=== PATIENT | female | born 1985 | race Hispanic/Latino ===

== ENCOUNTER 2016-10-10 10:06 | Emergency (ER) | payer SELFPAY ==
--- NOTE | 2016-10-10 12:11 | Emergency Department Report ---
Abscess Boil HPI - HPI Chief Complaint: Skin/Abscess/Foreign Body Stated Complaint: INGROWN HAIR/BOIL Time Seen by Provider: 10/10/16 11:31 Duration: 3 Days Location: Upper Extremity Severity: Mild History: Yes Pain, No Fever, No Purulent Drainage, No Numbness, No Foreign Body , No Previous History, No Insect Bite HPI: Patient is a 31-year-old female with no prior medical history who presents to ED complaining right axillary boil that has gotten bigger and worsening pain today days. Patient states her fever and denies any vomiting. Patient states that she is currently on her cycle and is not Home Medications: Previous Rx's Medication Instructions Recorded Last Taken Type Hydrocortisone 1% [Hydrocortisone 1 applicatio TP TID PRN #30 gm 10/14/13 Unknown Rx 1% CREAM] Sulfamethoxazole/Trimethoprim 1 each PO Q12H #30 tablet 10/14/13 Unknown Rx [Bactrim Ds] Cephalexin [Keflex] 500 mg PO BID #14 capsule 10/10/16 Unknown Rx HYDROcodone/APAP 5-325 [[place] 1 each PO Q6HR PRN #8 tablet 10/10/16 Unknown Rx 5-325 mg TAB] Ibuprofen [Motrin] 800 mg PO Q8HR PRN #30 tablet 10/10/16 Unknown Rx Allergies/Adverse Reactions: Allergies Allergy/AdvReac Type Severity Reaction Status Date / Time No Known Allergies Allergy Verified 08/17/13 05:15 ED Review of Systems ROS: Stated complaint: INGROWN HAIR/BOIL Other details as noted in HPI Constitutional: denies: chills, fever Eyes: denies: eye pain, eye discharge, vision change ENT: denies: ear pain, throat pain Respiratory: denies: cough, shortness of breath, wheezing Cardiovascular: denies: chest pain, palpitations Endocrine: no symptoms reported Gastrointestinal: denies: abdominal pain, nausea, diarrhea Genitourinary: denies: urgency, dysuria, discharge Musculoskeletal: denies: back pain, joint swelling, arthralgia Skin: denies: rash, lesions Neurological: denies: headache, weakness, paresthesias Psychiatric: denies: anxiety, depression Hematological/Lymphatic: denies: easy bleeding, easy bruising ED Past Medical Hx - Past Medical History Previous Medical History?: Yes Hx Congestive Heart Failure: No Hx Diabetes: No Hx Psychiatric Treatment: Yes (anxiety) Hx Asthma: No Hx COPD: No Additional medical history: FELIX - Surgical History Past Surgical History?: Yes Additional Surgical History: metal hannah l) leg - Social History Smoking Status: Current Every Day Smoker Substance Use Type: None - Medications Home Medications: Home Medications Medication Instructions Recorded Confirmed Last Taken Type Hydrocortisone 1% [Hydrocortisone 1 applicatio TP TID PRN #30 gm 10/14/13 Unknown Rx 1% CREAM] Sulfamethoxazole/Trimethoprim 1 each PO Q12H #30 tablet 10/14/13 Unknown Rx [Bactrim Ds] Cephalexin [Keflex] 500 mg PO BID #14 capsule 10/10/16 Unknown Rx HYDROcodone/APAP 5-325 [[place] 1 each PO Q6HR PRN #8 tablet 10/10/16 Unknown Rx 5-325 mg TAB] Ibuprofen [Motrin] 800 mg PO Q8HR PRN #30 tablet 10/10/16 Unknown Rx ED Abscess Boil Physical Exam - Exam General: Vital signs noted. No distress. Alert and acting appropriately. Size: 4 cm Exam: Yes Tenderness, Yes Fluctuance, Yes Surrounding Cellulites/Erythema, Yes Normal Neurologic Exam, Yes Normal Circulation, No Lymphangitis, No Crepitation , No Heart Murmur I & D Note - I & D Note I & D Note: Patient positioned appropriately, 5cc lidocaine without epinephrine was used as a local anesthetic. #11 blade scalpal used for single incision. Additional local anesthetic injected into surrounding viable tissue prior to blunt dissection of loculated adhesions. Copius drainage of pus. Wound packed with iodoform gauze. Procedure tolerated without complications. Wound dressed with sterile 4x4 guaze and paper tape. Pt tolerated procedure well. ED Course Vital Signs 10/10/16 10:35 Temperature 98.7 F Pulse Rate 132 H Respiratory 16 Rate Blood Pressure 140/95 O2 Sat by Pulse 98 Oximetry Critical care attestation.: If time is entered above; I have spent that time in minutes in the direct care of this critically ill patient, excluding procedure time. ED Medical Decision Making - Medical Decision Making 31-year-old female presents with right axillary abscess ED course: Patient received Toradol in the ED. Discussed the patient to return to ED in 3 days for packing removal and wound check. Discussed with patient to change dressing daily. Vital signs are normal patient is in no acute distress. The I&D nowsee ID note ED Disposition Clinical Impression: Axillary abscess Disposition: [id number] TO HOME OR SELFCARE Is pt being admited?: No Does the pt Need Aspirin: No Condition: Stable Instructions: Abscess (ED), Abscess Incision and Drainage (ED) Prescriptions: Cephalexin [Keflex] 500 mg PO BID #14 capsule HYDROcodone/APAP 5-325 [[place] 5-325 mg TAB] 1 each PO Q6HR PRN #8 tablet PRN Reason: Pain Ibuprofen [Motrin] 800 mg PO Q8HR PRN #30 tablet PRN Reason: Pain Referrals: PRIMARY CARE,MD [Primary Care Provider] - 3-5 Days [facility] [Outside] - 3-5 Days [facility] [Outside] - 3-5 Days [facility] [Outside] - 3-5 Days Forms: Work/School Release Form(ED) Time of Disposition: 12:45
[2016-10-10] MEDS ORDERED: TORADOL IM ONE (12:17)
[2016-10-10] MEDS ORDERED: XYLOCAINE 1% 20 mL INFILTRATI NR (12:30)
[2016-10-10 13:27] VITALS: BP 133/92
== END 2016-10-10 13:35 | disposition home or self-care (01) ==
LOC: ED 10:06
DX: L02.411 Cutaneous abscess of right axilla (principal); F17.200 Nicotine dependence, unspecified, uncomplicated
CPT/HCPCS: 10060; 96372; 99281; J1885

== ENCOUNTER 2016-10-12 16:33 | Emergency (ER) | payer SELFPAY ==
[2016-10-12 17:35] VITALS: BP 132/97
--- NOTE | 2016-10-12 20:45 | Emergency Department Report ---
- General Chief Complaint: Skin/Abscess/Foreign Body Stated Complaint: PACKAGE REMOVED Time Seen by Provider: 10/12/16 20:36 Source: patient Mode of arrival: Ambulatory Limitations: No Limitations - History of Present Illness Initial Comments: 31-year-old female past medical history none presents with complaint of request for packing removal right axilla. Patient states that she had an abscess incised on 10/10 and is here for packing removal. Denies fevers or chills denies increased purulent drainage or reaccumulation of abscess. States it has improved significantly and is currently taking keflex. Onset/Timin -: days(s) - Related Data Previous Rx's Medication Instructions Recorded Last Taken Type Hydrocortisone 1% [Hydrocortisone 1 applicatio TP TID PRN #30 gm 10/14/13 Unknown Rx 1% CREAM] Sulfamethoxazole/Trimethoprim 1 each PO Q12H #30 tablet 10/14/13 Unknown Rx [Bactrim Ds] Cephalexin [Keflex] 500 mg PO BID #14 capsule 10/10/16 Unknown Rx HYDROcodone/APAP 5-325 [[place] 1 each PO Q6HR PRN #8 tablet 10/10/16 Unknown Rx 5-325 mg TAB] Ibuprofen [Motrin] 800 mg PO Q8HR PRN #30 tablet 10/10/16 Unknown Rx Sulfamethoxazole/Trimethoprim 1 each PO BID #14 tablet 10/12/16 Unknown Rx [Bactrim DS TAB] Allergies Allergy/AdvReac Type Severity Reaction Status Date / Time No Known Allergies Allergy Verified 08/17/13 05:15 ED Review of Systems ROS: Stated complaint: PACKAGE REMOVED Other details as noted in HPI ED Past Medical Hx - Past Medical History Previous Medical History?: Yes Hx Congestive Heart Failure: No Hx Diabetes: No Hx Psychiatric Treatment: Yes (anxiety) Hx Asthma: No Hx COPD: No Additional medical history: FELIX - Surgical History Additional Surgical History: metal hannah l) leg - Social History Smoking Status: Current Every Day Smoker Substance Use Type: None - Medications Home Medications: Home Medications Medication Instructions Recorded Confirmed Last Taken Type Hydrocortisone 1% [Hydrocortisone 1 applicatio TP TID PRN #30 gm 10/14/13 Unknown Rx 1% CREAM] Sulfamethoxazole/Trimethoprim 1 each PO Q12H #30 tablet 10/14/13 Unknown Rx [Bactrim Ds] Cephalexin [Keflex] 500 mg PO BID #14 capsule 10/10/16 Unknown Rx HYDROcodone/APAP 5-325 [[place] 1 each PO Q6HR PRN #8 tablet 10/10/16 Unknown Rx 5-325 mg TAB] Ibuprofen [Motrin] 800 mg PO Q8HR PRN #30 tablet 10/10/16 Unknown Rx Sulfamethoxazole/Trimethoprim 1 each PO BID #14 tablet 10/12/16 Unknown Rx [Bactrim DS TAB] ED Physical Exam - General Limitations: No Limitations ED Course Vital Signs 10/12/16 17:30 Temperature 97.8 F Pulse Rate 98 H Respiratory 16 Rate Blood Pressure 132/97 O2 Sat by Pulse 100 Oximetry ED Medical Decision Making - Medical Decision Making A/P: Axillary abscess packing removal right axilla 1-patient states that she has experienced moderate relief and improvement. Approximately 9 inches of quarter-inch iodoform packing removed from wound. Abscess site soft, incision site open and patent still draining tiny amount of serous and bloody fluid 2-as patient states she was recently released from [facility] I will add on Bactrim for MRSA coverage as patient is only on Keflex at this time 3-I advised patient to return to the ED for any fevers chills worsened pus drainage and reaccumulation. Patient stated she understood my instructions 4- Critical care attestation.: If time is entered above; I have spent that time in minutes in the direct care of this critically ill patient, excluding procedure time. ED Disposition Clinical Impression: Axillary abscess, Abscess packing removal Disposition: TO HOME OR SELFCARE Is pt being admited?: No Does the pt Need Aspirin: No Condition: Stable Instructions: Acute Wound Care (ED), Abscess Incision and Drainage (ED) Additional Instructions: Patient advised to return to the ED for any reaccumulation of abscess or significant bleeding from site or fevers and chills Prescriptions: Sulfamethoxazole/Trimethoprim [Bactrim DS TAB] 1 each PO BID #14 tablet Referrals: [facility] [Provider Group] - 3-5 Days [facility] [Outside] - 3-5 Days Forms: Work/School Release Form(ED) Time of Disposition: 21:01
== END 2016-10-12 21:14 | disposition home or self-care (01) ==
LOC: ED 16:33
DX: Z48.01 Encounter for change or removal of surgical wound dressing (principal); L02.411 Cutaneous abscess of right axilla; F41.9 Anxiety disorder, unspecified; F17.200 Nicotine dependence, unspecified, uncomplicated

== ENCOUNTER 2018-03-21 14:08 | Emergency (ER) | payer MEDICAID ==
[2018-03-21 14:27] VITALS: BP 125/79
--- NOTE | 2018-03-21 15:08 | Emergency Department Report ---
ED Dysuria HPI - HPI Chief Complaint: Urogenital-Female Stated Complaint: /KIDNEY INFECTION Time Seen by Provider: 03/21/18 14:37 Duration: 3 Days Location of Discomfort: Suprapubic Symptoms: Dysuria: Yes, Frequency: No, Suprapubic Pain: No, Flank Pain: No, Fever: No, Hematuria: No, Abdominal Pain: No, Previous UTI's: Yes Other History: Patient is a 32-year-old female who comes to the ER today complaining that her urine has a strong smell. She has no fever. She is ambulatory. She states she is 3 months and last menstrual cycle November.Her is in the ER status post meth overdose. The patient is hyperverbal and hyperkinetic in fast track ED Review of Systems ROS: Stated complaint: /KIDNEY INFECTION Other details as noted in HPI Comment: All other systems reviewed and negative Constitutional: denies: chills, fever Eyes: denies: eye pain ENT: denies: throat pain Respiratory: denies: cough Cardiovascular: denies: palpitations Endocrine: denies: intolerance to cold Gastrointestinal: denies: abdominal pain, nausea, vomiting Genitourinary: as per HPI, dysuria, abnormal menses, other (LMP 9-18). denies: frequency, hematuria, discharge Musculoskeletal: denies: back pain Skin: denies: lesions Neurological: denies: headache Psychiatric: anxiety, other (HYPERKINETIC AND HYPERVERBAL; STATES SHE BEEN IN ER 3 DAYS WITH HER ). denies: depression Hematological/Lymphatic: denies: easy bleeding ED Past Medical Hx - Past Medical History Previous Medical History?: No Hx Congestive Heart Failure: No Hx Diabetes: No Hx Psychiatric Treatment: Yes (anxiety) Hx Asthma: No Hx COPD: No Additional medical history: FELIX - Surgical History Past Surgical History?: Yes Additional Surgical History: metal hannah l) leg - Social History Smoking Status: Current Every Day Smoker Substance Use Type: None - Medications Home Medications: Home Medications Medication Instructions Recorded Confirmed Last Taken Type RX: Hydrocortisone 1% 1 applicatio TP TID PRN #30 gm 10/14/13 Unknown Rx [Hydrocortisone 1% CREAM] Sulfamethoxazole/Trimethoprim 1 each PO Q12H #30 tablet 10/14/13 Unknown Rx [Bactrim Ds] Cephalexin [Keflex] 500 mg PO BID #14 capsule 10/10/16 Unknown Rx Ibuprofen [Motrin] 800 mg PO Q8HR PRN #30 tablet 10/10/16 Unknown Rx RX: HYDROcodone/APAP 5-325 [[place] 1 each PO Q6HR PRN #8 tablet 10/10/16 Unknown Rx 5-325 mg TAB] Sulfamethoxazole/Trimethoprim 1 each PO BID #14 tablet 10/12/16 Unknown Rx [Bactrim DS TAB] Dysuria Exam - Exam General: Vital signs noted. No distress. Alert and acting appropriately. Exam: Yes Moist Mucous Membranes, No CVA Tenderness, No Abdominal Tenderness, No Rigidity or Guarding ED Course Vital Signs 03/21/18 14:22 Temperature 98.8 F Pulse Rate 89 Respiratory 16 Rate Blood Pressure 125/79 O2 Sat by Pulse 98 Oximetry ED Medical Decision Making - Medical Decision Making LABS PENDING AT TIME OF ELOPEMENT UA UPREG UDS GIVEN HER BEHAVIOR NUMBERS TO REACH HER [id number] Lab Results 03/21/18 03/21/18 Range/Units 14:48 15:00 Urine Color Yellow (Yellow) Urine Turbidity Clear (Clear) Urine pH 7.0 (5.0-7.0) Ur Specific [place] 1.015 (1.003-1.030) Urine Protein <15 mg/dl (Negative) mg/dL Urine Glucose (UA) Neg (Negative) mg/dL Urine Ketones Neg (Negative) mg/dL Urine Blood Neg (Negative) Urine Nitrite Neg (Negative) Urine Bilirubin Neg (Negative) Urine Urobilinogen < 2.0 (<2.0) mg/dL Ur Leukocyte Esterase Sm (Negative) Urine WBC (Auto) 6.0 (0.0-6.0) /HPF Urine RBC (Auto) 2.0 (0.0-6.0) /HPF U Epithel Cells (Auto) 3.0 (0-13.0) /HPF Urine Mucus Few /HPF Urine HCG, Qual Positive A (Negative) Labs 03/21/18 03/21/18 14:48 15:00 Urine Color Yellow Urine Turbidity Clear Urine pH 7.0 Ur Specific [place] 1.015 Urine Protein <15 mg/dl Urine Glucose (UA) Neg Urine Ketones Neg Urine Blood Neg Urine Nitrite Neg Urine Bilirubin Neg Urine Urobilinogen < 2.0 Ur Leukocyte Esterase Sm Urine WBC (Auto) 6.0 Urine RBC (Auto) 2.0 U Epithel Cells (Auto) 3.0 Urine Mucus Few Urine HCG, Qual Positive A - Differential Diagnosis RO UTI Critical care attestation.: If time is entered above; I have spent that time in minutes in the direct care of this critically ill patient, excluding procedure time. ED Disposition Clinical Impression: Dysuria Disposition: ELOPED Is pt being admited?: No Does the pt Need Aspirin: No Condition: Stable Referrals: ALFREDA OHARA MD [Primary Care Provider] - 3-5 Days Time of Disposition: 14:00
[2018-03-21 15:27] LABS: HCG Qualitative,Urine Positive (Negative)
[2018-03-21 15:31] LABS: Bilirubin,Urine NEG (Negative); Blood,Urine NEG (Negative); Color,Urine Yellow (Yellow); Mucus,Urine FEW /HPF; Protein,Urine <15 mg/dL mg/dL (Negative); Urobilinogen,Urine < 2.0 mg/dL (<2.0)
[2018-03-21 15:49] LABS: Amphetamine Screen,Urine PRESUMPTIVE NEGATIVE; Benzodiazepines Screen,Urine PRESUMPTIVE NEGATIVE; Cannabinoid Screen,Urine PRESUMPTIVE NEGATIVE; Cocaine Screen,Urine PRESUMPTIVE NEGATIVE; Methadone Screen,Urine PRESUMPTIVE NEGATIVE; Opiate Screen,Urine PRESUMPTIVE NEGATIVE
== END 2018-03-21 15:54 | disposition left against medical advice (07) ==
LOC: ED 14:08
DX: O26.891 Other specified pregnancy related conditions, first trimester (principal); O99.331 Smoking (tobacco) complicating pregnancy, first trimester; O99.341 Other mental disorders complicating pregnancy, first trimester; R30.0 Dysuria; F41.9 Anxiety disorder, unspecified; R35.0 Frequency of micturition; Z3A.10 10 weeks gestation of pregnancy; Z79.899 Other long term (current) drug therapy
CPT/HCPCS: 80307; 81001; 81025; 99282

== ENCOUNTER 2018-04-07 15:31 | Emergency (ER) | payer MEDICAID ==
--- NOTE | 2018-04-07 16:31 | Emergency Department Report ---
ED Anxiety HPI - General Chief Complaint: Anxiety Stated Complaint: PREG/STRESSED Time Seen by Provider: 04/07/18 16:06 Source: patient Mode of arrival: Ambulatory - History of Present Illness Initial Comments: Patient is a 32-year-old female that presents emergency room for ultrasound. Patient states she is about 4-5 months and has not had any care and would like a ultrasound. Patient denies chest pain. Patient denies shortness of breath. Patient states she is under a lot of stress due to her being in the hospital. Patient was found to be tachycardic in triage and an EKG was done. Patient denies palpitations. Patient denies shortness of breath. Patient denies chest pain. Patient denies all pain patient denies physical symptoms. Patient states she has not been drinking water eating regularly due to the fact that her being in the hospital. She's only complaint is anxiety and stress reaction from being under a lot of stress. Complaint: anxiety -: Sudden - Related Data Home Medications: Previous Rx's Medication Instructions Recorded Last Taken Type Hydrocortisone 1% [Hydrocortisone 1 applicatio TP TID PRN #30 gm 10/14/13 Unknown Rx 1% CREAM] Sulfamethoxazole/Trimethoprim 1 each PO Q12H #30 tablet 10/14/13 Unknown Rx [Bactrim Ds] Cephalexin [Keflex] 500 mg PO BID #14 capsule 10/10/16 Unknown Rx HYDROcodone/APAP 5-325 [[place] 1 each PO Q6HR PRN #8 tablet 10/10/16 Unknown Rx 5-325 mg TAB] Ibuprofen [Motrin] 800 mg PO Q8HR PRN #30 tablet 10/10/16 Unknown Rx Sulfamethoxazole/Trimethoprim 1 each PO BID #14 tablet 10/12/16 Unknown Rx [Bactrim DS TAB] Allergies/Adverse Reactions: Allergies Allergy/AdvReac Type Severity Reaction Status Date / Time No Known Allergies Allergy Verified 04/07/18 15:37 ED Review of Systems ROS: Stated complaint: PREG/STRESSED Other details as noted in HPI Constitutional: denies: chills, fever Eyes: denies: eye pain, eye discharge, vision change ENT: denies: ear pain, throat pain Respiratory: denies: cough, shortness of breath, wheezing Cardiovascular: denies: chest pain, palpitations Endocrine: no symptoms reported Gastrointestinal: denies: abdominal pain, nausea, diarrhea Genitourinary: denies: urgency, dysuria, discharge Musculoskeletal: denies: back pain, joint swelling, arthralgia Skin: denies: rash, lesions Neurological: denies: headache, weakness, paresthesias Psychiatric: denies: anxiety, depression Hematological/Lymphatic: denies: easy bleeding, easy bruising ED Past Medical Hx - Past Medical History Previous Medical History?: Yes Hx Congestive Heart Failure: No Hx Diabetes: No Hx Psychiatric Treatment: Yes (anxiety) Hx Asthma: No Hx COPD: No Additional medical history: FELIX - Surgical History Past Surgical History?: Yes Additional Surgical History: metal hannah l) leg - Family History Family history: no significant - Social History Smoking Status: Current Every Day Smoker Substance Use Type: None - Medications Home Medications: Home Medications Medication Instructions Recorded Confirmed Last Taken Type Hydrocortisone 1% [Hydrocortisone 1 applicatio TP TID PRN #30 gm 10/14/13 Unknown Rx 1% CREAM] Sulfamethoxazole/Trimethoprim 1 each PO Q12H #30 tablet 10/14/13 Unknown Rx [Bactrim Ds] Cephalexin [Keflex] 500 mg PO BID #14 capsule 10/10/16 Unknown Rx HYDROcodone/APAP 5-325 [[place] 1 each PO Q6HR PRN #8 tablet 10/10/16 Unknown Rx 5-325 mg TAB] Ibuprofen [Motrin] 800 mg PO Q8HR PRN #30 tablet 10/10/16 Unknown Rx Sulfamethoxazole/Trimethoprim 1 each PO BID #14 tablet 10/12/16 Unknown Rx [Bactrim DS TAB] ED Physical Exam - General Limitations: No Limitations General appearance: alert, in no apparent distress - Head Head exam: Present: atraumatic, normocephalic - Eye Eye exam: Present: normal appearance - ENT ENT exam: Present: mucous membranes moist - Neck Neck exam: Present: normal inspection - Respiratory Respiratory exam: Present: normal lung sounds bilaterally. Absent: respiratory distress - Cardiovascular Cardiovascular Exam: Present: regular rate, normal rhythm. Absent: systolic murmur, diastolic murmur, rubs, gallop - GI/Abdominal GI/Abdominal exam: Present: soft, normal bowel sounds - Extremities Exam Extremities exam: Present: normal inspection - Back Exam Back exam: Present: normal inspection - Neurological Exam Neurological exam: Present: alert, oriented X3 - Psychiatric Psychiatric exam: Present: normal affect, normal mood - Skin Skin exam: Present: warm, dry, intact, normal color. Absent: rash ED Course Vital Signs 04/07/18 15:37 Temperature 97.4 F L Pulse Rate 140 H Respiratory 20 Rate Blood Pressure 137/84 O2 Sat by Pulse 100 Oximetry - Reevaluation(s) Reevaluation #1: Initial evaluation done. Discussed plan of care and investigation with patient. Patient will have labs and beta-hCG done. Patient agrees with plan of care. 04/07/18 16:06 Patient states she does not want to have workup done. Patient is a note 4. Patient states that she is ready to leave. Patient states she is going to leave. Risks explained to patient. Patient signed AMA. Patient voiced understanding of risks. Instructed to take vitamin. Patient instructed to follow up with [employer]. Patient instructed to return to ER if condition worsens. 04/07/18 17:00 ED Medical Decision Making - EKG Data -: EKG Interpreted by Me EKG shows normal: sinus rhythm, axis, intervals, QRS complexes, ST-T waves Rate: tachycardia - Medical Decision Making Patient is a 32-year-old female that presents emergency room for a ultrasound and stress. Patient signed out AMA. Risk discussed with patient. Patient voiced understanding of risks. Patient signed AMA form. Patient left AGAINST MEDICAL ADVICE. - Differential Diagnosis anx. stress. tachy Critical care attestation.: If time is entered above; I have spent that time in minutes in the direct care of this critically ill patient, excluding procedure time. ED Disposition Clinical Impression: Anxiety, Stress reaction, Tachycardia Qualifiers: Weeks of gestation: unspecified Qualified Code(s): Z34.90 - Encounter for supervision of normal , unspecified, unspecified trimester Disposition: LEFT AGAINST MED ADVICE Is pt being admited?: No Does the pt Need Aspirin: No Condition: Undetermined Time of Disposition: 17:07
[2018-04-08 14:18] VITALS: BP 137/84
== END 2018-04-07 16:30 | disposition left against medical advice (07) ==
LOC: ED 15:31
DX: O99.342 Other mental disorders complicating pregnancy, second trimester (principal); F41.9 Anxiety disorder, unspecified; F43.9 Reaction to severe stress, unspecified; O99.412 Diseases of the circulatory system complicating pregnancy, second trimester; R00.0 Tachycardia, unspecified; O99.332 Smoking (tobacco) complicating pregnancy, second trimester; F17.200 Nicotine dependence, unspecified, uncomplicated; Z3A.16 16 weeks gestation of pregnancy
CPT/HCPCS: 93005; 93010; 99282

== ENCOUNTER 2019-01-05 22:50 | Emergency (ER) | payer MEDICAID ==
--- NOTE | 2019-01-05 23:36 | XRay Report ---
RIGHT WRIST 4 VIEW(S) INDICATION / CLINICAL INFORMATION: right wrist swelling. COMPARISON: None available. FINDINGS: BONES / JOINT(S): Mildly comminuted, transverse fracture of the distal right radius with mild dorsal angulation and displacement. Fracture line does extend to the distal radial articular surface. Minima lly displaced fracture of the ulnar styloid process. No carpal bone fracture. No significant arthriti s. SOFT TISSUES: Moderate soft tissue swelling on the dorsum of the wrist. ADDITIONAL FINDINGS: None. IMPRESSION: 1. Right distal radius fracture. Signer Name: Modesto Garber MD Signed: 01/05/2019 11:32 PM Workstation Name: [id number]
[2019-01-05] MEDS ORDERED: IBUPROFEN 600 MG TAB PO ONE (23:51)
[2019-01-05] MEDS ORDERED: HYDROmorphone 1 MG/1 ML INJ IM ONE (23:51)
[2019-01-05] MEDS ORDERED: ONDANSETRON 4 MG ODT TAB PO ONE (23:51)
[2019-01-05] MEDS ORDERED: LIDOCAINE-MPF (1%) 10 MG/1 ML VIAL 5 ML INFILTRATI ONE (23:52)
--- NOTE | 2019-01-06 01:24 | Emergency Department Report ---
ED Upper Extremity Inj HPI - General Chief Complaint: Extremity Injury, Upper Stated Complaint: FALL/R WRIST PAIN/ANXIETY Source: patient Mode of arrival: Ambulatory Limitations: No Limitations - History of Present Illness Initial Comments: Patient is a 33-year-old female who presented to the ED with severe right wrist pain, swelling and deformity after she slipped and fell down while chasing her dog in her compound about one hour ago. Patient stated that she landed on the right wrist after falling on the ground. Patient states that she is unable to perform active range of motion of the right wrist because of severe pain. Patient denies head or neck injuries, back pain, chest pain, hip pain, low back pain, syncope, dizziness, numbness and tingling or weakness of right wrist or loss of consciousness. MD Complaint: Injury to:: right, wrist -: Sudden, hour(s) (1) Other Extremity Injury: Wrist: Right (right wrist pain, deformity and swelling) Other Injuries: none Place: home Severity scale (0 -10): 9 Improves With: none Worsens With: movement of extremity Context: fall, direct blow, injury Associated Symptoms: denies other symptoms. denies: weakness, numbness, neck pain, suspects foreign body, nausea/vomiting, heard/felt popping sensat Treatments Prior to Arrival: cold therapy - Related Data Previous Rx's Medication Instructions Recorded Last Taken Type Hydrocortisone 1% [Hydrocortisone 1 applicatio TP TID PRN #30 gm 10/14/13 Unknown Rx 1% CREAM] Sulfamethoxazole/Trimethoprim 1 each PO Q12H #30 tablet 10/14/13 Unknown Rx [Bactrim Ds] Cephalexin [Keflex] 500 mg PO BID #14 capsule 10/10/16 Unknown Rx Ibuprofen [Motrin] 800 mg PO Q8HR PRN #30 tablet 10/10/16 Unknown Rx Sulfamethoxazole/Trimethoprim 1 each PO BID #14 tablet 10/12/16 Unknown Rx [Bactrim DS TAB] Cyclobenzaprine [Flexeril] 10 mg PO Q8H PRN #15 tablet 01/06/19 Unknown Rx HYDROcodone/APAP 5-325 [[place] 1 each PO Q6HR PRN #12 tablet 01/06/19 Unknown Rx 5-325 mg TAB] Ibuprofen [Motrin] 600 mg PO Q8H PRN #20 tablet 01/06/19 Unknown Rx Allergies Allergy/AdvReac Type Severity Reaction Status Date / Time No Known Allergies Allergy Verified 04/07/18 15:37 ED Review of Systems ROS: Stated complaint: FALL/R WRIST PAIN/ANXIETY Other details as noted in HPI Constitutional: denies: chills, fever Eyes: denies: eye pain, eye discharge, vision change ENT: denies: ear pain, throat pain Respiratory: denies: cough, shortness of breath, wheezing Cardiovascular: denies: chest pain, palpitations Endocrine: no symptoms reported Gastrointestinal: denies: abdominal pain, nausea, diarrhea Genitourinary: denies: urgency, dysuria, discharge Musculoskeletal: joint swelling (right wrist with deformity and pain), arthralgia (right wrist pain, swelling and deformity). denies: back pain Skin: denies: rash, lesions Neurological: denies: headache, weakness, paresthesias Psychiatric: denies: anxiety, depression Hematological/Lymphatic: denies: easy bleeding, easy bruising ED Past Medical Hx - Past Medical History Previous Medical History?: Yes Hx Congestive Heart Failure: No Hx Diabetes: No Hx Psychiatric Treatment: Yes (anxiety) Hx Asthma: No Hx COPD: No Additional medical history: FELIX - Surgical History Past Surgical History?: Yes Additional Surgical History: metal hannah l) leg - Social History Smoking Status: Current Every Day Smoker Substance Use Type: None - Medications Home Medications: Home Medications Medication Instructions Recorded Confirmed Last Taken Type Hydrocortisone 1% [Hydrocortisone 1 applicatio TP TID PRN #30 gm 10/14/13 Unknown Rx 1% CREAM] Sulfamethoxazole/Trimethoprim 1 each PO Q12H #30 tablet 10/14/13 Unknown Rx [Bactrim Ds] Cephalexin [Keflex] 500 mg PO BID #14 capsule 10/10/16 Unknown Rx Ibuprofen [Motrin] 800 mg PO Q8HR PRN #30 tablet 10/10/16 Unknown Rx Sulfamethoxazole/Trimethoprim 1 each PO BID #14 tablet 10/12/16 Unknown Rx [Bactrim DS TAB] Cyclobenzaprine [Flexeril] 10 mg PO Q8H PRN #15 tablet 01/06/19 Unknown Rx HYDROcodone/APAP 5-325 [[place] 1 each PO Q6HR PRN #12 tablet 01/06/19 Unknown Rx 5-325 mg TAB] Ibuprofen [Motrin] 600 mg PO Q8H PRN #20 tablet 01/06/19 Unknown Rx ED Physical Exam - General Limitations: No Limitations General appearance: alert, in no apparent distress - Head Head exam: Present: atraumatic, normocephalic, normal inspection - Eye Eye exam: Present: normal appearance, PERRL, EOMI Pupils: Present: normal accommodation - ENT ENT exam: Present: normal exam, normal orophraynx, mucous membranes moist, TM's normal bilaterally, normal external ear exam - Neck Neck exam: Present: normal inspection, full ROM - Respiratory Respiratory exam: Present: normal lung sounds bilaterally. Absent: respiratory distress, wheezes, rales, decreased breath sounds, prolonged expiratory - Cardiovascular Cardiovascular Exam: Present: regular rate, normal rhythm, normal heart sounds. Absent: systolic murmur, diastolic murmur, rubs, gallop - GI/Abdominal GI/Abdominal exam: Present: soft, normal bowel sounds. Absent: tenderness, guar ding, rebound, hyperactive bowel sounds, hypoactive bowel sounds, organomegaly, bruit - Extremities Exam Extremities exam: Present: normal inspection, tenderness (probable right wrist tenderness, deformity and swelling with limited range of motion due to pain), normal capillary refill, joint swelling (right wrist swelling) - Back Exam Back exam: Present: normal inspection, full ROM. Absent: tenderness, muscle spasm, vertebral tenderness - Neurological Exam Neurological exam: Present: alert, oriented X3, CN II-XII intact, normal gait, reflexes normal - Psychiatric Psychiatric exam: Present: normal affect, normal mood - Skin Skin exam: Present: warm, dry, intact, normal color. Absent: rash ED Course Vital Signs 01/05/19 22:57 Temperature 97.4 F L Pulse Rate 95 H Respiratory 18 Rate Blood Pressure 126/92 O2 Sat by Pulse 100 Oximetry - Reevaluation(s) Reevaluation #1: 01/06/19 01:25 EST This is a 33-year-old female who presented to the ED with severe right wrist pain, swelling and deformity after she slipped and fell down while chasing her dog about one hour ago. In the ED, patient is alert and oriented 3 and is not in distress but appears to be in severe pain. Right wrist x-ray shows distal right radial fracture, Colles' fracture. Patient was treated for pain in the ED and on reevaluation, pain is well controlled with medications. The right wrist fracture was manually reduced after application of local anesthetic lidocaine 1% solution. Patient tolerated the procedure well and the right wrist was splinted with sugartong splint and patient discharged home on pain medications and muscle relaxants and advised to follow-up with the orthopedic surgeon radiation control specialist Dr. Bowden for further evaluation. Patient was advised to contact Dr. Bowden's office first thing in the morning the next day to schedule a follow-up appointment with Dr. Bowden. ED Medical Decision Making - Radiology Data Radiology results: report reviewed, image reviewed Findings [address] [address] XRay Report Signed Patient: RITA GARCIA MR#: [id number] : 1985 Acct:[id number] Age/Sex: 33 / F ADM Date: 01/05/19 Loc: ED Attending Dr: Ordering Physician: KESHIA HARRIS MD Date of Service: 01/05/19 Procedure(s): XR wrist 3+V RT Accession Number(s): [id number] cc: KESHIA HARRSI MD Fluoro Time In Minutes: RIGHT WRIST 4 VIEW(S) INDICATION / CLINICAL INFORMATION: right wrist swelling. COMPARISON: None available. FINDINGS: BONES / JOINT(S): Mildly comminuted, transverse fracture of the distal right radius with mild dorsal angulation and displacement. Fracture line does extend to the distal radial articular surface. Minimally displaced fracture of the ulnar styloid process. No carpal bone fracture. No significant arthritis. SOFT TISSUES: Moderate soft tissue swelling on the dorsum of the wrist. ADDITIONAL FINDINGS: None. IMPRESSION: 1. Right distal radius fracture. Signer Name: Modesto Garber MD Signed: 01/05/2019 11:32 PM Workstation Name: [id number] Transcribed By: LENA Dictated By: Chris Garber MD Electronically Authenticated By: Chris Garber MD Signed Date/Time: 01/05/192331 DD/ 30 TD/TT: Findings [facility] [address] [place] [address] XRay Report Signed Patient: RITA GARCIA MR#: [id number] : 1985 Acct:[id number] Age/Sex: 33 / F ADM Date: 01/05/19 Loc: ED Attending Dr: Ordering Physician: PINO PITTMAN Date of Service: 01/06/19 Procedure(s): XR wrist 2V RT Accession Number(s): [id number] cc: PINO PITTMAN Fluoro Time In Minutes: RIGHT WRIST 2 VIEW(S) INDICATION / CLINICAL INFORMATION: Post-reduction/ splint COMPARISON: 01/15/19 FINDINGS: BONES / JOINT(S): Interval closed reduction and placement of fiberglass splint. Slight improvement in alignment with mild residual dorsal angulation of distal radial fracture. Signer Name: Modesto Garber MD Signed: 01/06/2019 2:18 AM Workstation Name: [id number] Transcribed By: DT Dictated By: Chris Garber MD Electronically Authenticated By: Chris Garber MD Signed Date/Time: 01/06/19217 DD/ 6 TD/TT: - Medical Decision Making This is a 33-year-old female who presented to the ED with severe right wrist pain, swelling and deformity after she slipped and fell down while chasing her dog about one hour ago. In the ED, patient is alert and oriented 3 and is not in distress but appears to be in severe pain. Right wrist x-ray shows distal right radial fracture, Colles' fracture. Patient was treated for pain in the ED and on reevaluation, pain is well controlled with medications. The right wrist fracture was manually reduced after application of local anesthetic lidocaine 1% solution. Patient tolerated the procedure well and the right wrist was splinted with sugartong splint and patient discharged home on pain medications and muscle relaxants and advised to follow-up with the orthopedic surgeon radiation control specialist Dr. Bowden for further evaluation. The post reduction right wrist x-ray shows a better alignment significantly improved from the nonaligned initial imaging. Patient was advised to contact Dr. Bowden's office first thing in the morning the next day to schedule a follow-up appointment with Dr. Bowden. - Differential Diagnosis Wrist fracture; Wrist contusion; Forearm fracture Critical care attestation.: If time is entered above; I have spent that time in minutes in the direct care of this critically ill patient, excluding procedure time. ED Disposition Clinical Impression: Colles' fracture of right radius, initial encounter for closed fracture, Contusion of right wrist, initial encounter Disposition: TO HOME OR SELFCARE Is pt being admited?: No Does the pt Need Aspirin: No Condition: Stable Instructions: Wrist Fracture in Adults (ED), Contusion in Adults (ED) Additional Instructions: Take medications with food, drink plenty of fluids and follow-up with Dr. Bowden Ryder the orthopedic surgeon for further evaluation. Contact Dr. Bowden's office first thing in the morning on 01/07/2019 to schedule an appointment for follow-up. Return to the ED immediately if symptoms get worse. Prescriptions: Cyclobenzaprine [Flexeril] 10 mg PO Q8H PRN #15 tablet PRN Reason: Muscle Spasm Ibuprofen [Motrin] 600 mg PO Q8H PRN #20 tablet PRN Reason: Pain HYDROcodone/APAP 5-325 [[place] 5-325 mg TAB] 1 each PO Q6HR PRN #12 tablet PRN Reason: Pain Referrals: RYDER BOWDEN MD [Staff Physician] - 24 Hours Time of Disposition: 01:29 Print Language: YAKUT
[2019-01-06] MEDS ORDERED: oxyCODONE /ACETAMINOPHEN 5-325MG TAB PO ONE (01:45)
[2019-01-06] MEDS ORDERED: ONDANSETRON 4 MG ODT TAB PO ONE (01:45)
[2019-01-06 01:52] VITALS: BP 101/47
== END 2019-01-06 02:00 | disposition home or self-care (01) ==
LOC: ED 22:50
DX: S52.501A Unspecified fracture of the lower end of right radius, initial encounter for closed fracture (principal); F41.9 Anxiety disorder, unspecified; F17.200 Nicotine dependence, unspecified, uncomplicated; Z79.899 Other long term (current) drug therapy; W01.0XXA Fall on same level from slipping, tripping and stumbling without subsequent striking against object, initial encounter; Y93.89 Activity, other specified; Y92.89 Other specified places as the place of occurrence of the external cause; Y99.8 Other external cause status
CPT/HCPCS: 25605; 73100; 73110; 96372; 99283; J1170; Q0162

== ENCOUNTER 2019-01-23 14:10 | Emergency (ER) | payer MEDICAID ==
--- NOTE | 2019-01-23 14:42 | Event Note ---
ED Screening Note Date of service: 01/23/19 Time: 14:40 ED Screening Note: 33 y o female presents to ED s/p right hand fx x 2 weeks took off cast herself today and pain began has not followed up with ortho due to finances This initial assessment/diagnostic orders/clinical plan/treatment(s) is/are subject to change based on patients health status, clinical progression and re- assessment by fellow clinical providers in the ED. Further treatment and workup at subsequent clinical providers discretion. Patient/guardian urged not to elope from the ED as their condition may be serious if not clinically assessed and managed. Initial orders include: xr hand
--- NOTE | 2019-01-23 15:15 | XRay Report ---
RIGHT HAND 2 VIEWS INDICATION / CLINICAL INFORMATION: Pain in right hand. Recently diagnosed right wrist fracture. COMPARISON: Right wrist series from 01/06/2019. FINDINGS: BONES and JOINT(S): The previously seen comminuted fracture of the distal radius is more displaced wi th increased dorsal in relation. No dislocation is seen. There is a stable avulsion fracture of the u lnar styloid. No new acute osseous abnormality is seen. SOFT TISSUES: Soft tissue swelling is again seen throughout the wrist. ADDITIONAL FINDINGS: None. IMPRESSION: Increased displacement and angulation of the right radial fracture. Signer Name: Wilmer Leiva MD Signed: 01/23/2019 3:11 PM Workstation Name: [id number]
--- NOTE | 2019-01-23 16:50 | Emergency Department Report ---
ED Upper Extremity Inj HPI - General Chief Complaint: Pain General Stated Complaint: RT ARM PAIN Time Seen by Provider: 01/23/19 16:28 Source: patient Mode of arrival: Ambulatory Limitations: No Limitations - History of Present Illness Initial Comments: 33-year-old female was recently diagnosed with a distal radial fracture 2-3 weeks ago. A splint was in this emergency Department however she states that the splint began to grow smelly and itchy so she removed it. She has not yet followed up with orthopedic doctor as recommended and states she is due to follow up in the morning around 9 AM. 2. Pain to the wrist which has worsened since to gases been removed and presents emergency department to seek further evaluation and treatment options. She is also complaining of a bump on the wrist area that she is unsure of as well.. She reports no recent reinjury no worsening injury as well as she did have some bruising states that is be ginning to resolve. Pain is dull and throbbing and worse with palpation and range of motion. MD Complaint: Injury to:: right, wrist -: Sudden Other Extremity Injury: Wrist: Right Handedness: right Place: home Improves With: immobilization, rest Worsens With: movement of extremity Context: fall Associated Symptoms: denies: neck pain, suspects foreign body, nausea/vomiting, heard/felt popping sensat - Related Data Previous Rx's Medication Instructions Recorded Last Taken Type Hydrocortisone 1% [Hydrocortisone 1 applicatio TP TID PRN #30 gm 10/14/13 Unknown Rx 1% CREAM] Sulfamethoxazole/Trimethoprim 1 each PO Q12H #30 tablet 10/14/13 Unknown Rx [Bactrim Ds] Cephalexin [Keflex] 500 mg PO BID #14 capsule 10/10/16 Unknown Rx Ibuprofen [Motrin] 800 mg PO Q8HR PRN #30 tablet 10/10/16 Unknown Rx Sulfamethoxazole/Trimethoprim 1 each PO BID #14 tablet 10/12/16 Unknown Rx [Bactrim DS TAB] Cyclobenzaprine [Flexeril] 10 mg PO Q8H PRN #15 tablet 01/06/19 Unknown Rx HYDROcodone/APAP 5-325 [[place] 1 each PO Q6HR PRN #12 tablet 01/06/19 Unknown Rx 5-325 mg TAB] Ibuprofen [Motrin] 600 mg PO Q8H PRN #20 tablet 01/06/19 Unknown Rx Allergies Allergy/AdvReac Type Severity Reaction Status Date / Time No Known Allergies Allergy Verified 04/07/18 15:37 ED Review of Systems ROS: Stated complaint: RT ARM PAIN Other details as noted in HPI Comment: All other systems reviewed and negative ED Past Medical Hx - Past Medical History Previous Medical History?: Yes Hx Congestive Heart Failure: No Hx Diabetes: No Hx Psychiatric Treatment: Yes (anxiety) Hx Asthma: No Hx COPD: No Additional medical history: FELIX - Surgical History Past Surgical History?: Yes Additional Surgical History: metal hannah l) leg; b/l arm surgery - Social History Smoking Status: Never Smoker Substance Use Type: None - Medications Home Medications: Home Medications Medication Instructions Recorded Confirmed Last Taken Type Hydrocortisone 1% [Hydrocortisone 1 applicatio TP TID PRN #30 gm 10/14/13 Unknown Rx 1% CREAM] Sulfamethoxazole/Trimethoprim 1 each PO Q12H #30 tablet 10/14/13 Unknown Rx [Bactrim Ds] Cephalexin [Keflex] 500 mg PO BID #14 capsule 10/10/16 Unknown Rx Ibuprofen [Motrin] 800 mg PO Q8HR PRN #30 tablet 10/10/16 Unknown Rx Sulfamethoxazole/Trimethoprim 1 each PO BID #14 tablet 10/12/16 Unknown Rx [Bactrim DS TAB] Cyclobenzaprine [Flexeril] 10 mg PO Q8H PRN #15 tablet 01/06/19 Unknown Rx HYDROcodone/APAP 5-325 [[place] 1 each PO Q6HR PRN #12 tablet 01/06/19 Unknown Rx 5-325 mg TAB] Ibuprofen [Motrin] 600 mg PO Q8H PRN #20 tablet 01/06/19 Unknown Rx ED Physical Exam - General Limitations: No Limitations General appearance: alert, in no apparent distress - Head Head exam: Present: atraumatic, normocephalic - Eye Eye exam: Present: normal appearance, PERRL, EOMI Pupils: Present: normal accommodation - ENT ENT exam: Present: normal exam, normal orophraynx, mucous membranes moist - Neck Neck exam: Present: normal inspection - Respiratory Respiratory exam: Present: normal lung sounds bilaterally. Absent: respiratory distress - Cardiovascular Cardiovascular Exam: Present: regular rate, normal rhythm. Absent: systolic murmur, diastolic murmur, rubs, gallop - GI/Abdominal GI/Abdominal exam: Present: soft, normal bowel sounds - Extremities Exam Extremities exam: Present: normal inspection - Expanded Upper Extremity Exam Right Hand Wrist exam: Present: tenderness, swelling, deformity. Absent: crepidus, dislocation, erythema, amputation, nail avulsion, subungual hematoma Hand L/R Front: 1 - Positive: other (deformity and tenderness to this region. Pulses are 2+ capillary refills are brisk.) Hand L/R Back: 1 - Bruising noted to this region and in the resolve stage - Back Exam Back exam: Present: normal inspection - Neurological Exam Neurological exam: Present: alert, oriented X3 - Psychiatric Psychiatric exam: Present: normal affect, normal mood - Skin Skin exam: Present: warm, dry, intact, normal color. Absent: rash ED Course Vital Signs 01/23/19 14:38 Temperature 97.4 F L Pulse Rate 110 H Respiratory 18 Rate Blood Pressure 129/87 O2 Sat by Pulse 99 Oximetry ED Medical Decision Making - Radiology Data Radiology results: report reviewed [address] [address] XRay Report Signed Patient: RITA GARCIA MR#: [id number] : 1985 Acct:[id number] Age/Sex: 33 / F ADM Date: 01/23/19 Loc: ED Attending Dr: Ordering Physician: PINO BROWN Date of Service: 01/23/19 Procedure(s): XR hand 2V RT Accession Number(s): [id number] cc: PINO BROWN Fluoro Time In Minutes: RIGHT HAND 2 VIEWS INDICATION / CLINICAL INFORMATION: Pain in right hand. Recently diagnosed right wrist fracture. COMPARISON: Right wrist series from 01/06/2019. FINDINGS: BONES and JOINT(S): The previously seen comminuted fracture of the distal radius is more displaced with increased dorsal in relation. No dislocation is seen. There is a stable avulsion fracture of the ulnar styloid. No new acute osseous abnormality is seen. SOFT TISSUES: Soft tissue swelling is again seen throughout the wrist. ADDITIONAL FINDINGS: None. IMPRESSION: Increased displacement and angulation of the right radial fracture. Signer Name: Wilmer Leiva MD Signed: 01/23/2019 3:11 PM Workstation Name: [id number] Transcribed By: MN Dictated By: Wilmer Leiva MD Electronically Authenticated By: Wilmer Leiva MD Signed Date/Time: 01/23/19 1511 - Medical Decision Making 33-year-old female diagnosed with a distal radial fracture a few weeks ago she department removed her cast due to smelliness). Rectus. Pain began to increase upon removal. She returns for reevaluation of the fracture and to have the splint replaced A she has an appointment with orthopedic in the morning but cannot wait until that time due to the level of discomfort. She is neurovascularly intact. She denies any reinjury. No broken skin no fevers, chills, sweats no swelling to the arm or shoulder or fingers. Critical care attestation.: If time is entered above; I have spent that time in minutes in the direct care of this critically ill patient, excluding procedure time. ED Disposition Clinical Impression: Wrist fracture, right Disposition: DC-01 TO HOME OR SELFCARE Is pt being admited?: No Does the pt Need Aspirin: No Condition: Stable Instructions: Wrist Fracture in Adults (ED) Referrals: RYDER ALDRIDGE MD [Staff Physician] - 01/24/19 (Keep your appointment in the morning)
[2019-01-23] MEDS ORDERED: oxyCODONE /ACETAMINOPHEN 5-325MG TAB PO STA (17:01)
[2019-01-23 17:24] VITALS: BP 130/90
== END 2019-01-23 17:22 | disposition home or self-care (01) ==
LOC: ED 14:10
DX: S52.501G Unspecified fracture of the lower end of right radius, subsequent encounter for closed fracture with delayed healing (principal); F41.9 Anxiety disorder, unspecified; Z98.890 Other specified postprocedural states; Z79.899 Other long term (current) drug therapy; X58.XXXD Exposure to other specified factors, subsequent encounter